=== PATIENT | male | born 1990 | race African-American/Black ===

== ENCOUNTER 2018-10-29 20:46 | Emergency (ER) | payer BC ==
[~2018-10-29] VITALS: Ht 167.6 cm; Wt 80.0 kg
[2018-10-30] MEDS ORDERED: HYDROCODONE/ACETAMINOPHEN 5/325MG TABLET PO ONE (05:30)
[2018-10-30 06:27] VITALS: BP 117/74
== END 2018-10-30 07:33 | disposition home or self-care (01) ==
LOC: ER 20:46
DX: S20.219A Contusion of unspecified front wall of thorax, initial encounter (principal); S50.12XA Contusion of left forearm, initial encounter; S50.01XA Contusion of right elbow, initial encounter; M25.562 Pain in left knee; M25.561 Pain in right knee; F17.200 Nicotine dependence, unspecified, uncomplicated; V49.9XXA Car occupant (driver) (passenger) injured in unspecified traffic accident, initial encounter; Y93.89 Activity, other specified; Y92.89 Other specified places as the place of occurrence of the external cause; Y99.8 Other external cause status
CPT/HCPCS: 71045; 73080; 73090; 99283